=== PATIENT | female | born 1955 | race Caucasian/White ===

== ENCOUNTER 2017-01-21 12:03 | Emergency (ER) | payer OTHER ==
[~2017-01-21 12:03] MED LIST: ACIPHEX20 MG PO; ARIXTRA2.5 MG/0.5 SQ; DULCOLAX10 MG/SUPP RC; ESTRATEST TABLE1 TAB; FIBER TABS625 MG PO; KEFLEX500 MG PO; MILK OF MA800 MG/5 M PO; MIRALAX17 GM PO; MULTIVITAMIN1 TAB PO; NORCO 5/325 TAB1 TAB PO; OS-CAL 500500 MG/TA1 PO; OSCAL PO; RELPAX; TOPAMAX25 MG; TOPAMAX25 MG PO; TYLENOL650 MG PO; ULTRAM50 MG PO
[2017-01-21] MEDS ORDERED: CYCLOBENZAPRINE10 M1 PO (12:09)
[2017-01-21] MEDS ORDERED: ULTRAM50 M1 PO (12:09)
[2017-01-21] MEDS ORDERED: DEXILANT30 M1 PO (12:09)
[2017-01-21] MEDS ORDERED: PERCOCET 5-3251 EACH PO (12:10)
[2017-01-21] MEDS ORDERED: TOPAMAX100 M2 PO (12:10)
[2017-01-21] MEDS ORDERED: MACRODANTIN50 M2 PO (12:10)
[2017-01-21] MEDS ORDERED: RELPAX40 M1 PO (12:11)
[2017-01-21] MEDS ORDERED: ASPIRIN325 M3 PO (12:12)
[2017-01-21] MEDS ORDERED: BACTRIM DS TAB1 EAC2 PO (12:15)
[2017-01-21] MEDS ORDERED: PREDNISONE10 M1 PO (13:53)
[2017-01-22] MEDS ORDERED: XARELTO20 M1 PO (12:45)
[2017-01-22] MEDS ORDERED: XARELTO15 M1 PO (12:47)
[2017-05-10] MEDS ORDERED: CRANBERRY500 M2 PO (15:04)
[2017-05-10] MEDS ORDERED: VITAMIN C500 M3 PO (15:04)
[2017-05-10] MEDS ORDERED: OXYCODONE-ACET1 EAC3 PO (15:39)
== END 2017-01-21 14:20 ==
LOC: EDMED 12:03
DX: T37.0X5A Adverse effect of sulfonamides, initial encounter (principal)
CPT/HCPCS: J0171; J7512

== ENCOUNTER 2017-01-21 15:51 | Observation (INO) | payer OTHER ==
[~2017-01-21 15:51] MED LIST changes: +ASPIRIN325 M3 PO; +BACTRIM DS TAB1 EAC2 PO; +CYCLOBENZAPRINE10 M1 PO; +DEXILANT30 M1 PO; +MACRODANTIN50 M2 PO; +PERCOCET 5-3251 EACH PO; +PREDNISONE10 M1 PO; +RELPAX40 M1 PO; +TOPAMAX100 M2 PO; +ULTRAM50 M1 PO
[2017-01-21 16:32] LABS: BASO % 0.1 % (0-2); HCT-HEMATOCRIT 43.8 % (34.0-49.0); IMMATURE GRANULOCYTES ABSOLUTE 0.02 tho/cmm (0-0.03); IMMATURE GRANULOCYTES PERCENT 0.2 % (0-0.3); LYMPH % 5.5 % (20-45); LYMPH ABSOLUTE COUNT 0.7 tho/cmm (0.8-4.5); MCH (MEAN CORPUSCULAR HGB) 30.2 pg (28.0-32.0); MCHC MEAN CORPUSCULAR HGB CONC 34.2 % (32.0-36.0); MCV (MEAN CELL VOLUME) 88.3 fl (82.0-96.0); MEAN PLATELET VOLUME 9.9 cmc (9.4-12.4); MONO % 0.8 % (0-12); MONOCYTE ABSOLUTE COUNT 0.1 tho/cmm (0.0-1.2); NEUTROPHIL ABSOLUTE COUNT 11.9 tho/cmm (1.6-8.0); NEUTROPHIL-AUTOMATED 11.9 tho/cmm (1.6-8.0); NEUTROPHILS % 93.4 % (40-80); PLATELET COUNT 239 tho/cmm (150-450); RED BLOOD COUNT 4.96 mil/cmm (4.00-5.20); RED CELL DISTRIBUTION WIDTH 12.7 % (12.4-16.4); WHITE BLOOD COUNT 12.7 tho/cmm (4.0-10.0)
[2017-01-21 16:54] LABS: ANION GAP 13 mmol/L (0-20); BLOOD UREA NITROGEN 22 mg/dl (6-24); CALCIUM 8.9 mg/dl (8.5-10.5); CARBON DIOXIDE-VENOUS 20 mmol/L (22-32); CHLORIDE 109 mmol/l (96-110); CREATININE 1.16 mg/dl (0.50-1.10); GLUCOSE 183 mg/dL (70-110); SODIUM 138 mmol/L (135-145); eGFR VALUE FOR BLACK 60 mL/Min
[2017-01-22 05:37] LABS: BASO % 0.1 % (0-2); HCT-HEMATOCRIT 38.9 % (34.0-49.0); HGB-HEMOGLOBIN 13.2 gm/dl (12.0-15.5); IMMATURE GRANULOCYTES ABSOLUTE 0.02 tho/cmm (0-0.03); IMMATURE GRANULOCYTES PERCENT 0.2 % (0-0.3); LYMPH % 9.1 % (20-45); LYMPH ABSOLUTE COUNT 1.2 tho/cmm (0.8-4.5); MCH (MEAN CORPUSCULAR HGB) 30.2 pg (28.0-32.0); MCHC MEAN CORPUSCULAR HGB CONC 33.9 % (32.0-36.0); MEAN PLATELET VOLUME 9.8 cmc (9.4-12.4); MONO % 3.2 % (0-12); MONOCYTE ABSOLUTE COUNT 0.4 tho/cmm (0.0-1.2); NEUTROPHIL ABSOLUTE COUNT 11.5 tho/cmm (1.6-8.0); NEUTROPHIL-AUTOMATED 11.5 tho/cmm (1.6-8.0); NEUTROPHILS % 87.4 % (40-80); PLATELET COUNT 231 tho/cmm (150-450); RED BLOOD COUNT 4.37 mil/cmm (4.00-5.20); RED CELL DISTRIBUTION WIDTH 12.7 % (12.4-16.4); WHITE BLOOD COUNT 13.1 tho/cmm (4.0-10.0)
[2017-01-22 05:44] LABS: ANION GAP 13 mmol/L (0-20); BLOOD UREA NITROGEN 21 mg/dl (6-24); CALCIUM 8.2 mg/dl (8.5-10.5); CARBON DIOXIDE-VENOUS 19 mmol/L (22-32); CHLORIDE 113 mmol/l (96-110); CREATININE 0.87 mg/dl (0.50-1.10); GLUCOSE 168 mg/dL (70-110); SODIUM 140 mmol/L (135-145); eGFR VALUE FOR BLACK 85 mL/Min
[2017-01-22 05:47] LABS: POTASSIUM 5.1 mmol/L (3.7-5.1)
[2017-01-22] MEDS ORDERED: XARELTO20 M1 PO (12:45)
[2017-01-22] MEDS ORDERED: XARELTO15 M1 PO (12:47)
[2017-05-10] MEDS ORDERED: CRANBERRY500 M2 PO (15:04)
[2017-05-10] MEDS ORDERED: VITAMIN C500 M3 PO (15:04)
[2017-05-10] MEDS ORDERED: OXYCODONE-ACET1 EAC3 PO (15:39)
== END 2017-01-22 14:19 ==
LOC: EDMED 15:51 → EMR2 20:44 → 5WF 21:53
PROVIDERS: Emergency Medicine; ADMIT Internal Medicine
DX: I26.99 Other pulmonary embolism without acute cor pulmonale (principal); R07.9 Chest pain, unspecified; R21 Rash and other nonspecific skin eruption; K21.9 Gastro-esophageal reflux disease without esophagitis; N39.0 Urinary tract infection, site not specified; Z79.899 Other long term (current) drug therapy; Z88.1 Allergy status to other antibiotic agents; Z96.652 Presence of left artificial knee joint; Z90.710 Acquired absence of both cervix and uterus; Z90.89 Acquired absence of other organs; Z90.49 Acquired absence of other specified parts of digestive tract; Z98.890 Other specified postprocedural states
CPT/HCPCS: G0378; J1200; J2930; J7030; Q9967